=== PATIENT | female | born 1965 | race Two or more races ===

== ENCOUNTER 2025-01-14 07:03 | Day surgery (SDC) | payer MEDICAID ==
[2025-01-11 09:08] LABS: Basophils # (auto) 0 10 ^3/uL (0-0.2); Basophils % (auto) 0.4 % (0.0-2.0); Eosinophils # (auto) 0.2 10 ^3/uL (0-0.8); Eosinophils % (auto) 2.9 % (0.0-7.0); Hematocrit 43.3 % (36.0-46.0); Hemoglobin 14.6 g/dL (12.2-16.2); Lymphocytes # (auto) 1.9 10 ^3/uL (0.4-5.4); Lymphocytes % (auto) 36.4 % (10.0-50.0); Mean Corpuscular Hemoglobin 31.6 pg (28.0-32.0); Mean Corpuscular Hgb Conc. 33.8 g/dL (32.0-36.0); Mean Corpuscular Volume 93.5 fL (80.0-100.0); Monocytes # (auto) 0.4 10 ^3/uL (0-1.3); Monocytes % (auto) 7.3 % (0.0-12.0); Neutrophils # (auto) 2.8 10 ^3/uL (1.6-8.6); Platelet Count (auto) 286 10^3/uL (140-450); Red Blood Cells 4.62 10^6/uL (4.0-5.20); Red Cell Distribution Width 13.5 % (11.8-14.3); White Blood Cell 5.3 10^3/uL (4.4-10.8)
[2025-01-11 09:30] LABS: INR 1.02 (0.9-1.15); Partial Thromboplastin Time 35.7 SEC (24.5-34.5); Prothrombin Time 10.8 sec (9.3-11.8)
[2025-01-11 09:51] LABS: Alanine Aminotransferase 31 U/L (7-40); Albumin 4.5 g/dL (3.2-4.8); Alkaline Phosphatase 109 U/L (46-116); Anion Gap 7 (5-15); Aspartate Aminotransferase 18 U/L (13-40); BUN/Creatinine Ratio 17.1 (10.0-20.0); Bilirubin, Total 0.7 mg/dL (0.2-1.0); Blood Urea Nitrogen 13 mg/dL (9-23); Calcium 9.8 mg/dL (8.7-10.4); Carbon Dioxide 28 mmol/L (20-31); Glucose 93 mg/dL (74-106); Sodium 143 mmol/L (136-145); Total Protein 7.2 g/dL (5.7-8.2)
[2025-01-11 09:54] LABS: Chloride 108 mmol/L (98-107)
[~2025-01-14 07:03] MED LIST: ATOR10TA PO; CHOL20004 PO; LEVO75TA6 PO
[2025-01-14 07:27] VITALS: TEMP 97.8
[2025-01-14 10:13] VITALS: PULSE 71; RESP 16; O2SAT 100
[2025-01-14] MEDS: fentaNYL CITRATE 100 MCG/2 ML VL ONE (10:19)
[2025-01-14] MEDS: MIDAZOLAM HCL 2MG/2ML 2ml VIAL (1mg/ml) ONE (10:19)
[2025-01-14 10:39] VITALS: BP 112/59; PULSE 73; RESP 18; O2SAT 98
--- NOTE | 2025-01-14 10:40 | DVHNC2 ---
Procedure - DATE OF PROCEDURE: January 14, 2025 SURGEON: JAMES ALEJANDRO MD REFERRING PROVIDER: [facility] PROCEDURE PERFORMED: 1. Colonoscopy with moderate sedation PRE-PROCEDURE DIAGNOSIS: 1. Positive Cologuard test 2. Constipation POSTPROCEDURE DIAGNOSIS: 1. Internal hemorrhoids otherwise normal colonoscopy INDICATIONS FOR PROCEDURE: The patient is a 59-year-old female with a history of a positive Cologuard test, no prior colonoscopy, and constipation. MEDICATIONS USED: 5 mg of Versed IV and 100 mcg IV given in incremental doses DETAILS OF THE PROCEDURE: Informed consent was obtained after risks, benefits, and alternatives, were discussed at length with the patient. The patient gave consent to the procedure as well as the medication used for sedation. The patient was placed in the left lateral decubitus position. Digital rectal exam showed internal hemorrhoids. An Olympus variable torsion adult colonoscope was inserted into the rectum and advanced to the cecum. The cecum was identified by the ileocecal valve and the appendiceal orifice. The scope was then withdrawn. The prep was good with only small amounts of liquid stool. There were no large polyps, masses, strictures, or arteriovenous malformation seen. The patient had moderate left-sided diverticulosis. Retroflexion showed internal hemorrhoids. The patient tolerated the procedure well. [place] BOWEL PREP SCORE: 8 COLONOSCOPY START TIME: 1025 CECUM TIME: 1029 COLONOSCOPY END TIME: 1037 IMPRESSION: 1. Internal hemorrhoids otherwise normal colonoscopy RECOMMENDATIONS: 1. Follow up in GI clinic for procedure results 2. High-fiber diet 3. Follow up with primary care physician 4. Medical management of the hemorrhoids 5. Repeat colonoscopy in 7-10 years unless otherwise indicated I WOULD LIKE TO THANK [facility] FOR THIS REFERRAL JAMES ALEJANDRO MD Jan 14, 2025 10:39
== END 2025-01-14 11:40 | disposition home or self-care (01) ==
LOC: GI 07:03
PROVIDERS: ATTEND Specialist
DX: R19.5 Other fecal abnormalities (principal); K59.00 Constipation, unspecified; K64.8 Other hemorrhoids; E03.9 Hypothyroidism, unspecified; Z79.890 Hormone replacement therapy; Z79.899 Other long term (current) drug therapy; Z86.0100 Personal history of colon polyps, unspecified
CPT/HCPCS: 36415; 45378; 80053; 85025; 85610; 85730; J2250; J3010; J7030; 99152